=== PATIENT | male | born 1955 | race African-American/Black ===

== ENCOUNTER 2016-04-08 06:26 | Day surgery (SDC) | END 2016-04-08 10:26 | disposition home or self-care (01) | DX: Z12.11 Encounter for screening for malignant neoplasm of colon (principal); D12.0 Benign neoplasm of cecum; I10 Essential (primary) hypertension; I25.10 Atherosclerotic heart disease of native coronary artery without angina pectoris; E11.9 Type 2 diabetes mellitus without complications | CPT/HCPCS: 45380; 82962; 88305; Z7610 ==

== ENCOUNTER 2017-06-24 16:04 | Emergency (ER) | END 2017-06-24 17:06 | disposition home or self-care (01) ==

== ENCOUNTER 2017-12-16 12:06 | Emergency (ER) | END 2017-12-16 15:04 | disposition home or self-care (01) ==